=== PATIENT | male | born 1995 | race Caucasian/White ===

== ENCOUNTER 2020-07-30 14:59 | Emergency (ER) | payer BC ==
[~2020-07-30] VITALS: Ht 175.3 cm; Wt 81.0 kg
[2020-07-30] MEDS ORDERED: KETOROLAC 60 MG/2 ML VIAL. IM ONE (15:45)
[2020-07-30] MEDS ORDERED: PROCHLORPERAZINE 10 MG/2 ML VIAL. IM ONE (15:45)
--- NOTE | 2020-07-30 15:57 | PHYS DOC ---
Past History Past Medical History: No Pertinent History Past Surgical History: Other Additional Past Surgical Histo: ABDOMINAL SURGERY A BABY Alcohol Use: Occasionally General Adult EDM: Chief Complaint: HEADACHE HPI: HPI: Patient is a male who presents with a 5-day history of right-sided frontal currently 6 out of 10 pressure-like headache. Patient denies any radiation pain. Patient states symptoms are worse with light and associate with nausea. Patient states symptoms are usually better after he vomits. Patient has had these intermittent headaches that last usually 2 hours over the last 5 days and had similar episodes 2 weeks ago but prior to that has no history of headaches. Patient has been tested for COVID-19 on the third which was inconclusive and then again on the 10th which was negative. Patient has any fever or cough. Patient has had exposure to people with COVID-19. Review of Systems: Review of Systems: Constitutional: Denies fever or chills Eyes: Denies change in visual acuity HENT: Denies nasal congestion or sore throat Respiratory: Denies cough or shortness of breath Cardiovascular: Denies chest pain or edema GI: Patient denies abdominal pain, vomiting or diarrhea but has had nausea associated with his headaches and vomiting. : Denies dysuria Musculoskeletal: Denies back pain or joint pain Integument: Denies rash Neurologic: Patient complains of headache but no focal weakness or numbness Endocrine: Denies polyuria or polydipsia Lymphatic: Denies swollen glands Psychiatric: Denies depression or anxiety Current Medications: Current Meds: Current Medications Medications (Trade) Dose Ordered Sig/[facility] Start Time Stop Time Status Last Admin Dose Admin Ketorolac Tromethamine (Toradol Im) 60 mg 1X ONCE 07/30/20 15:45 07/30/20 15:46 DC 07/30/20 15:54 60 MG Prochlorperazine Edisylate (Compazine) 10 mg 1X ONCE 07/30/20 15:45 07/30/20 15:46 DC 07/30/20 15:54 10 MG Allergies: Allergies: Allergies Coded Allergies Type Severity Reaction Last Updated Verified Penicillins Allergy Unknown 07/30/20 Yes Physical Exam: PE: Constitutional: Well developed, well nourished, no acute distress, non-toxic appearance. [] HENT: Normocephalic, atraumatic, bilateral external ears normal, no trismus nose normal. [] Eyes: PERRLA, EOMI, conjunctiva normal, no discharge. [] Neck: Normal range of motion, no tenderness, supple, no stridor. [No meningeal signs] Cardiovascular:Heart rate regular rhythm, no murmur [] Lungs & Thorax: Bilateral breath sounds clear to auscultation [] Abdomen: Bowel sounds normal, soft, no tenderness, no masses, no pulsatile masses. [] Skin: Warm, dry, no erythema, no rash. [] Back: No tenderness, no CVA tenderness. [] Extremities: No tenderness, no cyanosis, no clubbing, ROM intact, no edema. [] Neurologic: Alert and oriented X 3, normal motor function, normal sensory function, no focal deficits noted. [] Psychologic: Affect normal, judgement normal, mood normal. [] Current Patient Data: Vital Signs: Vital Signs Date Time Temp Pulse Resp B/P (MAP) Pulse Ox O2 Delivery O2 Flow Rate FiO2 07/30/20 15:39 97.1 87 18 140/109 (119) 96 Room Air EKG: EKG: [] Radiology/Procedures: Radiology/Procedures: [][place] [address] IMAGING REPORT Signed PATIENT: DAVEY THOMAS ACCOUNT: [id number] : 1995 LOCATION: ER AGE: 25 SEX: M EXAM STATUS: REG ER ORD. PHYSICIAN: BRYAN MCCLAIN MD REASON: SUBRAMANIAN, R FRONTAL PROCEDURE: CT HEAD WO CONTRAST Examination: CT HEAD WO CONTRAST History: Reason: SUBRAMANIAN, R FRONTAL / Spl. Instructions: / History: Comparison/Correlation: None Findings: Axial images of the head were obtained without contrast. Normal parra-white matter differentiation identified. No intracranial hemorrhage, midline shift, or mass effect. Ventricles are normal size. Bony structures are unremarkable. Impression: Normal CT head without contrast. RS Compliance Statement: One or more of the following individualized dose reduction techniques were utilized for this examination: 1. Automated exposure control 2. Adjustment of the mA and/or kV according to patient size 3. Use of iterative reconstruction technique Electronically signed by: Harrison Rojas MD (07/30/2020 3:55 PM) [facility] DICTATED AND SIGNED BY: HARRISON ROJAS MD DATE: 07/30/201554 CC: BRYAN MCCLAIN MD; PCP,NO ~ Heart Score: Risk Factors: Risk Factors: DM, Current or recent (<one month) smoker, HTN, HLP, family history of CAD, obesity. Risk Scores: Score 0 - 3: 2.5% MACE over next 6 weeks - Discharge Home Score 4 - 6: 20.3% MACE over next 6 weeks - Admit for Clinical Observation Score 7 - 10: 72.7% MACE over next 6 weeks - Early Invasive Strategies Course & Med Decision Making: Course & Med Decision Making Pertinent Labs and Imaging studies reviewed. (See chart for details) [][place] [address] IMAGING REPORT Signed PATIENT: DAVEY THOMAS ACCOUNT: [id number] : 1995 LOCATION: ER AGE: 25 SEX: M EXAM STATUS: REG ER ORD. PHYSICIAN: BRYAN MCCLAIN MD REASON: SUBRAMANIAN, R FRONTAL PROCEDURE: CT HEAD WO CONTRAST Examination: CT HEAD WO CONTRAST History: Reason: SUBRAMANIAN, R FRONTAL / Spl. Instructions: / History: Comparison/Correlation: None Findings: Axial images of the head were obtained without contrast. Normal parra-white matter differentiation identified. No intracranial hemorrhage, midline shift, or mass effect. Ventricles are normal size. Bony structures are unremarkable. Impression: Normal CT head without contrast. [facility] Compliance Statement: One or more of the following individualized dose reduction techniques were utilized for this examination: 1. Automated exposure control 2. Adjustment of the mA and/or kV according to patient size 3. Use of iterative reconstruction technique Electronically signed by: Harrison Rojas MD (07/30/2020 3:55 PM) [facility] DICTATED AND SIGNED BY: HARRISON ROJAS MD DATE: 07/30/201554 CC: BRYAN MCCLAIN MD; PCP,NO ~ 25-year-old male presents with intermittent headaches for the last 2 weeks. Patient has had headaches for the last 5 days. Due to change in nature of headaches head CT was done which was negative. Patient is neurologically intact. Patient no meningeal signs. Doubt intercranial hemorrhage or meningitis. Patient reassessed at 4:33 PM and pain is cut in half from 6 to 3 out of 10. Patient will be treated with a dose of steroids here and home on anti-inflammatories and Compazine. Patient with referrals to a neurologist for further evaluation treatment Khoa Disclaimer: Khoa Disclaimer: This electronic medical record was generated, in whole or in part, using a voice recognition dictation system. Departure Departure: Impression: Primary Impression: Right-sided headache Disposition: 01 DC HOME SELF CARE/HOMELESS Condition: STABLE Referrals: [facility] (PCP) NINO QUINTANILLA MD 2-3 DAYS Patient Instructions: General Headache Without Cause Additional Instructions: EMERGENCY DEPARTMENT GENERAL DISCHARGE INSTRUCTIONS THANK YOU for coming to [facility] Emergency Department (ED) today and trusting us with your care. We trust that you had a positive experience in our Emergency Department. If you wish to speak to the department Management you can contact the emergency department at YOUR FOLLOW UP INSTRUCTIONS ARE FOLLOWS: Do you have a private doctor? If you do not have a private doctor, please ask for a resource list of physicians or clinics that may be able to assist you with follow up care. The Emergency Physician has interpreted your x-rays. The X-ray specialist will also review them. If there is a change in the findings you will be notified in 48 hours when at all possible. A lab test or lab culture may have been done, your results will be reviewed and you will be notified if you need a change in treatment. ADDITIONAL INSTRUCTIONS AND INFORMATION Your care today has been supervised by a physician who is specially trained in emergency care. Many problems require more than one evaluation for a complete diagnosis and treatment. We recommend that you schedule your follow up appointment as recommended to ensure complete treatment of your illness or injury. If you are unable to obtain follow up care and continue to have a problem, or if your condition worsens we recommend that you return to the ED. We are not able to safely determine your condition over the phone nor are we able to give sound medical advice over the phone. For these safety reasons, if you call for medical advice we will ask you to come to the ED for further evaluation If you have any questions regarding these discharge instructions please call the ED at . SAFETY INFORMATION In the interest of safety, wellness, and injury prevention; we encourage you to wear your seatbelt, if you smoke; quit smoking, and we encourage your family to use protective helmet for bicycling and other sporting events that present an increased risk for head injury. IF YOUR SYMPTOMS WORSEN OR NEW SYMPTOMS DEVELOP, OR YOU HAVE CONCERNS ABOUT YOUR CONDITION; OR IF YOUR CONDITION WORSENS WHILE YOU ARE WAITING FOR YOUR FOLLOW UP APPOINTMENT; EITHER CONTACT YOUR PRIMARY CARE DOCTOR, THE PHYSICIAN WHOSE NAME AND NUMBER YOU WERE GIVEN, OR RETURN TO THE ED IMMEDIATELY. Scripts Prochlorperazine Maleate (Compazine) 10 Mg Tablet 1 TAB PO Q6HRS for NAUSEA/HEADACHE for 5 Days, #20 TAB 0 Refills Prov: BRYAN MCCLAIN MD 07/30/20 Naproxen (NAPROSYN) 500 Mg Tablet 1 TAB PO BID PRN for PAIN, #20 TAB 0 Refills Prov: BRYAN MCCLAIN MD 07/30/20 BRYAN MCCLAIN MD Jul 30, 2020 15:57
[2020-07-30] MEDS ORDERED: PROC10TA57 PO (16:37)
[2020-07-30] MEDS ORDERED: NAPR-683 PO (16:37)
[2020-07-30] MEDS ORDERED: DEXAMETHASONE SOD PHOS 10 MG/ML VIAL. PO ONE (16:45)
[2020-07-30 16:51] VITALS: BP 116/88
== END 2020-07-30 16:52 | disposition home or self-care (01) ==
LOC: ER 14:59
DX: R51.9 Headache, unspecified (principal); R11.2 Nausea with vomiting, unspecified; Z88.0 Allergy status to penicillin
CPT/HCPCS: 70450; 96372; 99284; J0780; J1100; J1885